=== PATIENT | female | born 2000 | race Caucasian/White ===

== ENCOUNTER 2024-02-25 10:11 | Emergency (ER) | payer OTHER, SELFPAY ==
--- NOTE | ~2024-02-25 | XR_ITS ---
EXAMINATION: XR CHEST CLINICAL INFORMATION: Vomiting blood COMPARISON: None available. TECHNIQUE: 2 views of the chest were obtained. FINDINGS: No significant abnormality is noted involving the heart, lungs, mediastinum, bony thorax or soft tissues. XR/XR chest 2V IMPRESSION: Unremarkable examination.
--- NOTE | 2024-02-25 10:14 | ECG_ITS ---
Test Reason : CHEST PAIN Blood Pressure : / mmHG Vent. Rate : 095 BPM Atrial Rate : 095 BPM P-R Int : 154 ms QRS Dur : 082 ms QT Int : 384 ms P-R-T Axes : 010 062 -31 degrees QTc Int : 482 ms Normal sinus rhythm Cannot rule out Anterior infarct , age undetermined Abnormal ECG No previous ECGs available Referred By: Generic ED Physician Electronically Signed By:JOSE VEGA MD
[2024-02-25 10:18] VITALS: BP 120/77; PULSE 108; RESP 20; TEMP 36.3; O2SAT 99; BMI 33.4
[2024-02-25 10:44] LABS: Appearance Urine Clear; Basophils Percent Auto 0.4 % (0-2); Color Urine Yellow; Eosinophils Absolute Auto 0.1 X10*3/uL (0.0-0.4); Glucose Urine UA Negative (Negative); Hematocrit 41.1 % (37.0-47.0); Hemoglobin 14.4 g/dl (12.0-16.0); Imm Gran Abs Auto 0.02 X10*3/uL (0.00-0.03); Imm Gran Pct Auto 0.2 % (0.0-0.4); Lymphocytes Absolute Auto 1.6 X10*3/uL (1.2-4.9); Lymphocytes Percent Auto 19.1 % (20-40); MANUAL DIFF FLAG NO; Mean Corpuscular Volume 85.6 fL (80.0-98.0); Mean Platelet Volume 9.1 fL (9.4-12.3); Monocytes Absolute Auto 0.3 X10*3/uL (0.1-1.2); Monocytes Percent Auto 3.3 % (2-11); Neutrophils Absolute Auto 6.2 x10*3/uL (2.0-8.3); Platelet Count 299 X10*3/uL (160-400); Red Cell Distribution Width 12.6 % (11.0-16.0); Specific Gravity - Urine 1.025 (1.005-1.025); Urine Blood Negative (Negative); Urine Protein 30 (1+) mg/dL (Neg-Trace); White Blood Count 8.2 X10*3/uL (4.8-10.8)
[2024-02-25 10:45] LABS: Leukocyte Esterase Urine Negative (Negative); Nitrite Urine Negative (Negative); UMIC TRIGGER UACC YES; UPreg QC Valid YES; Urine Ketones Trace mg/dL (Negative); Urine Pregnancy NEGATIVE (NEGATIVE)
[2024-02-25 10:47] LABS: Bacteria Urine 2+ (None Seen); Hyaline Casts Urine 0-2 /LPF (0-2); RBC Urine 0-2 /HPF (0-2); WBC Urine 0-5 /HPF (0-5)
--- NOTE | 2024-02-25 10:53 | ED_ITS ---
HPI - Abdominal Pain General Chief Complaint: Abdominal Pain Stated Complaint: chest pain Time Seen by Provider: 02/25/24 10:47 Source: patient and other Mode of arrival: ambulatory Limitations: no limitations History of Present Illness HPI narrative: 23-year-old female with known cannabis hyperemesis recurrent visits to the ER she states she has been a year since she has been to the ER states she noticed some blood in vomit decided to come in she should vomiting or no diarrhea denies any falls or injuries does take showers to help with nausea MD elicited complaint: abdominal pain Related Data Previous Rx's ?Medication ?Instructions ?Recorded ondansetron 4 mg disintegrating 4 mg PO Q6H #14 tabs 02/25/24 tablet Allergies Allergy/AdvReac Type Severity Reaction Status Date / Time No Known Allergies Allergy Verified 02/25/24 10:21 Review of Systems Review of Systems Review of systems: General: Patient denies any fever chills recent illness or falls Musculoskeletal: Denies back pain or body aches or other injuries HEENT: denies headache, runny nose, ear pain Respiratory: denies shortness of breath, cough Cardiovascular: no chest pain or palpitations : denies dysuria, frequency Abdomen: nausea vomiting no diarrhea with generalized abdominal pain Extremities: no swelling, no pain Skin: no diaphoresis Yes all other systems are reviewed and are negative PMFSH Social History Social History Advance Directives: No Physical Exam ED Vital Signs: Vital Signs - 24 hr 02/25/24 10:18 Temperature 97.3 F Pulse Rate 108 H Respiratory Rate 20 Blood Pressure 120/77 Pulse Oximetry 99 Oxygen Delivery Method Room Air BMI result Body Mass Index 33.4 General: Well-appearing well-nourished in no signs of distress HEENT: Normocephalic atraumatic Neck: No signs of JVD, no masses no tenderness or lymphadenopathy Cardiovascular: Regular rate and rhythm Respiratory: Clear to auscultation bilaterally Abdomen: Soft nontender no masses Extremities: Normal pedal pulses no signs of edema Skin: Dry warm no rashes Back: No tenderness full ROM Course Course Course Narrative: Patient looks well feeling much better we will keep the plan to go home after medications labs were normal prior to getting medicated Medical Decision Making Medical Decision Making MDM Narrative: I did have my typical conversation with the patient about cannabis stating the only way to stop the recurrent vomiting is to avoid using cannabis. . She states she has been diagnosed and she still used cannabis every day. Patient will be given Haldol Ativan Pepcid fluids and Benadryl Differential Diagnosis Differential Diagnoses: The differential diagnosis associated with the presentation includes Cannabis hyperemesis dehydration electrolyte abnormality Lab Data [facility] Lab Attestation statement: I reviewed the patient's lab results. 02/25/24 10:33 02/25/24 10:33 Labs: Lab Results 02/25/24 Range/Units 10:33 WBC 8.2 (4.8-10.8) X10*3/uL RBC 4.80 (4.20-5.50) X10*6/uL Hgb 14.4 (12.0-16.0) g/dl Hct 41.1 (37.0-47.0) % MCV 85.6 (80.0-98.0) fL MCH 30.0 (27.0-33.0) pg MCHC 35.0 (31.0-35.0) g/dl RDW 12.6 (11.0-16.0) % Plt Count 299 (160-400) X10*3/uL MPV 9.1 L (9.4-12.3) fL Immature Gran % (Auto) 0.2 (0.0-0.4) % Neut % (Auto) 76.0 H (45-73) % Lymph % (Auto) 19.1 L (20-40) % [place] % (Auto) 3.3 (2-11) % Eos % (Auto) 1.0 (0-4) % Baso % (Auto) 0.4 (0-2) % Lymph # (Auto) 1.6 (1.2-4.9) X10*3/uL [place] # (Auto) 0.3 (0.1-1.2) X10*3/uL Eos # (Auto) 0.1 (0.0-0.4) X10*3/uL Baso # (Auto) 0.0 (0.0-0.2) X10*3/uL Abs Immat Gran (auto) 0.02 (0.00-0.03) X10*3/uL Absolute Neuts (auto) 6.2 (2.0-8.3) x10*3/uL Absolute Nucleated RBC 0.000 (0.0-0.012) X10*3/uL Nucleated RBC % (auto) 0.0 (0.0-0.2) /100WBC Sodium 140 (135-145) mmol/L Potassium 3.6 (3.3-5.1) mmol/L Chloride 105 (96-108) mmol/L Carbon Dioxide 21 L (22-29) mmol/L Anion Gap 18 (12-20) BUN 19 H (9-16) mg/dL Creatinine 0.72 (0.5-1.4) mg/dL Estim Creat Clear Calc 128.1 Estimated GFR > 60 Random Glucose 132 H (60-115) mg/dL Calcium 9.2 (8.4-10.2) mg/dL Total Bilirubin 0.2 (0.0-1.0) mg/dL Direct Bilirubin < 0.2 (0.0-0.5) mg/dL AST 20 (5-31) U/L ALT 20 (0-31) U/L Alkaline Phosphatase 66 (39-117) U/L Troponin I High Sens < 2.7 (<3.5-17.0) ng/L Total Protein 7.9 (6.5-8.0) g/dL Albumin 4.5 (3.5-5.0) g/dL Lipase 21 (8-78) U/L Urine Color Yellow Urine Appearance Clear Urine pH 7.0 (5.0-9.0) Ur Specific Groom 1.025 (1.005-1.025) Urine Protein 30 (1+) H (Neg-Trace) mg/dL Urine Glucose (UA) Negative (Negative) mg/dL Urine Ketones Trace (Negative) mg/dL Urine Blood Negative (Negative) Urine Nitrite Negative (Negative) Ur Leukocyte Esterase Negative (Negative) Urine RBC 0-2 (0-2) /HPF Urine WBC 0-5 (0-5) /HPF Ur Squamous Epith Cells 3-5 (0-2) /HPF Urine Bacteria 2+ (None Seen) Hyaline Casts 0-2 (0-2) /LPF Urine Test NEGATIVE (NEGATIVE) Independent Interpretation I performed an independent interpretation of an: EKG Interpretation: Rate 95 normal sinus rhythm normal intervals no signs of ischemia unchanged from previous interpreted by me Medications Administered Discontinued Medications Generic Name Dose Route Start Last Admin Trade Name Freq PRN Reason Stop Dose Admin Diphenhydramine HCl 25 mg 02/25/24 10:59 02/25/24 11:51 Diphenhydramine Hcl 50 Mg/Ml Vial IVPUSH 02/25/24 11:00 25 mg ONCE ONE Administration Haloperidol Lactate 5 mg 02/25/24 10:59 02/25/24 11:51 Haloperidol Lactate 5 Mg/Ml Vial IVPUSH 02/25/24 11:00 5 mg STAT STA Administration Sodium Chloride 1,000 mls @ 999 mls/hr 02/25/24 11:00 02/25/24 12:57 Ns IV 02/25/24 12:00 Infused .Q1H1M AMANDEEP Infusion Famotidine 20 mg/ Sodium 52 mls @ 200 mls/hr 02/25/24 11:15 02/25/24 12:10 Chloride IV 02/25/24 11:30 Infused ONCE ONE Infusion Lorazepam 1 mg 02/25/24 10:59 02/25/24 11:52 Lorazepam 2 Mg/Ml Vial IVPUSH 02/25/24 11:00 1 mg ONCE ONE Administration Discharge Plan Discharge Clinical Impression: Abdominal pain, Cannabis hyperemesis syndrome concurrent with and due to cannabis abuse, Vomiting, Acute dehydration Patient Disposition: Home, Self-Care Instructions: Dehydration (ED), Acute Nausea and Vomiting (ED), Cannabis Abuse (ED) Additional Instructions: You were seen today for vomiting abdominal pain. You had labs done which were all normal this is likely related to your cannabis use has we did discuss a no this is something that is hard believe that we do see this very often in the ER. The only treatment is to stop smoking marijuana to avoid have any as hopefully this will not happen again. Your labs are normal. Please call follow-up with your doctor. Prescriptions: New ondansetron 4 mg tablet,disintegrating 4 mg PO Q6H Qty: 14 0RF Print Language: Slovak
[2024-02-25 11:02] LABS: Alanine Aminotransferase 20 U/L (0-31); Albumin Level 4.5 g/dL (3.5-5.0); Alkaline Phosphatase 66 U/L (39-117); Anion Gap 18 (12-20); Aspartate Amino Transferase 20 U/L (5-31); Bilirubin Direct < 0.2 mg/dL (0.0-0.5); Bilirubin Total 0.2 mg/dL (0.0-1.0); Blood Urea Nitrogen 19 mg/dL (9-16); Calcium 9.2 mg/dL (8.4-10.2); Carbon Dioxide 21 mmol/L (22-29); Chloride 105 mmol/L (96-108); Creatinine Clr Calc Pharmacy 128.1; Estimated Glomerular Filt Rate > 60; Glucose Random 132 mg/dL (60-115); Lipase 21 U/L (8-78); Potassium 3.6 mmol/L (3.3-5.1); Sodium 140 mmol/L (135-145); Total Protein 7.9 g/dL (6.5-8.0)
[2024-02-25 11:25] LABS: Troponin-I High Sensitivity < 2.7 ng/L (<3.5-17.0)
[2024-02-25] MEDS: 0.9 % Sodium Chloride 1,000 ML 999 ML IV (11:49)
[2024-02-25] MEDS: Haloperidol Lactate 5 MG/ML VIAL IVPUSH (11:51)
[2024-02-25] MEDS: diphenhydrAMINE HCL 50 MG/ML VIAL 25 MG IVPUSH (11:51)
[2024-02-25] MEDS: LORazepam 2 MG/ML VIAL 1 MG IVPUSH (11:52)
[2024-02-25] MEDS: Famotidine/PF 20 MG in 0.9 % Sodium Chloride 50 ML 200 MG IV (11:52)
[2024-02-25 14:16] VITALS: BP 103/61; PULSE 95; RESP 18; TEMP 36.7
[2024-02-25 14:19] VITALS: BP 103/61; PULSE 91; RESP 17; O2SAT 98
== END 2024-02-25 14:23 | disposition home or self-care (01) ==
PROVIDERS: Emergency Provider Student in an Organized Health Care Education/Training Program
DX: R10.9 Unspecified abdominal pain (principal); R07.89 Other chest pain; R11.2 Nausea with vomiting, unspecified; F12.920 Cannabis use, unspecified with intoxication, uncomplicated; E86.0 Dehydration; Z79.899 Other long term (current) drug therapy
CPT/HCPCS: 36415; 71046; 80048; 80076; 81001; 81025; 83690; 84484; 85025; 93005; 96361; 96374; 96375; 99284; J1200; J1630; J2060

== ENCOUNTER → 2024-02-25 10:14 | Outpatient (BNV) | payer OTHER, SELFPAY | PROVIDERS: Emergency Provider Student in an Organized Health Care Education/Training Program; Visit Provider Internal Medicine Cardiovascular Disease | DX: R94.31 Abnormal electrocardiogram [ECG] [EKG] (principal); R07.9 Chest pain, unspecified | CPT/HCPCS: 93010 ==